=== PATIENT | male | born 1970 | race Caucasian/White ===

== ENCOUNTER 2016-08-30 07:59 | Emergency (ER) | payer BC ==
[2016-08-30] MEDS ORDERED: Ketorolac Tromethamine 60 MG/2 ML VIAL ONE (08:22)
== END 2016-08-30 08:44 | disposition home or self-care (01) ==
LOC: BURERS 07:59
DX: M54.5 Low back pain (principal)
CPT/HCPCS: 96372; J1885

== ENCOUNTER 2017-01-02 09:12 | Emergency (ER) | payer BC | END 2017-01-02 09:44 | disposition home or self-care (01) | LOC: BURERS 09:12 | DX: K04.7 Periapical abscess without sinus (principal); I10 Essential (primary) hypertension; F17.220 Nicotine dependence, chewing tobacco, uncomplicated | CPT/HCPCS: 99283 ==

== ENCOUNTER 2017-07-12 13:57 | Emergency (ER) | payer BC, OTHER, SELFPAY ==
[2017-07-12 15:01] LABS: Bilirubin Negative (Negative); Blood, Urine Negative (Negative); Clarity Clear (Clear); Glucose, Urine (Dipstick) Negative (Negative); Leukocyte Negative (Negative); Nitrite Negative (Negative); Protein, Urine (Dipstick) Negative (Neg-Trace); Specific Gravity, Urine 1.025 (1.002-1.036)
[2017-07-12 15:39] LABS: White Blood Cell (WBC) Count 9.6 thou/uL (4.8-10.8)
[2017-07-12 15:40] LABS: #Basophils 0.1 thou/uL (0.0-0.2); #Eosinphils 0.3 thou/uL (0.0-0.7); #Monocytes 0.6 thou/uL (0.11-0.59); #Neutrophils 6.2 thou/uL (1.40-6.50); %Basophils 1.3 % (0.0-1.0); %Eosinophils 3.2 % (0.0-10.0); %Lymphocytes 24.6 % (21.0-51.0); %Monocytes 5.9 % (0.0-10.0); %Neutrophils 65.1 % (42.0-75.0); Hemoglobin 14.8 g/dL (14.0-18.0); MDiff Complete? YES; Mean Corpuscular HGB CONC 34.6 g/dL (32.0-36.0); Mean Corpuscular Hemoglobin 29.6 pg (27.0-31.0); Mean Corpuscular Volume 85.7 fL (80.0-94.0); Platelet Count 264 thou/uL (130-400); RBC Distribution Width 12.1 % (11.5-14.5); Red Blood Cell (RBC) Count 4.99 mill/uL (4.70-6.10)
[2017-07-12 16:23] LABS: Anion Gap 15 mmol/L (10-20); BUN (Urea Nitrogen) 9 mg/dL (8.9-20.6); Calc. Creatinine Clearance 0 mL/min (70-130); Calcium 9.6 mg/dL (7.8-10.44); Carbon Dioxide 24 mmol/L (22-29); Chloride 107 mmol/L (98-107); Estimated GFR-MDRD Greater than 90; Glucose 110 mg/dL (70-105); Potassium 3.7 mmol/L (3.5-5.1); Sodium 142 mmol/L (136-145)
[2017-07-12] MEDS ORDERED: Ibuprofen 800 MG TAB ONE (16:43)
--- NOTE | 2017-07-12 17:23 | RAD ---
CHEST TWO VIEWS: 07/12/17 Comparison is made with the 08/07/08 study. The heart is normal in size. There is no mediastinal widening or shift. There is some linear streakin g in the left base which may be atelectasis. There are no large effusions. No pneumothorax was seen. No gross fracture was identified. The lungs are somewhat hyperexpanded. IMPRESSION: Left basilar streaking which is likely atelectasis. There might be a tiny left pleural effusion, but this is less certain. POS: HOME
--- NOTE | 2017-07-12 17:32 | CT ---
CT OF THE CHEST WITH CONTRAST 07/12/[address] of the chest was performed for evaluation of an abnormal chest x-ray after a fall. Axial sl ices were acquired, then lara and sagittal reconstructions were done. A nondisplaced fracture of the left 12th rib is noted. No other rib fractures were detected. There is a very small left pleural effusion, but no pneumothorax was seen. There is the suggestion of a littl e atelectasis in the lingular region on the left. The lungs are otherwise clear. The patient's spine appears intact. Regarding the mediastinum, there is no sign of mediastinal mass or hematoma. There is probably a trac e of pericardial fluid. There is a small fluid collection in the region of the aorticopulmonary windo w that is presumably in a pericardial recess. No coronary calcifications were appreciated. Scans into the upper abdomen showed no acute findings here. Most of the spleen was seen and it appear ed intact. IMPRESSION: Nondisplaced fracture of the left 12th rib with associated small left pleural effusion. POS: HOME
== END 2017-07-12 17:13 | disposition home or self-care (01) ==
LOC: BURERS 13:57
DX: S22.32XA Fracture of one rib, left side, initial encounter for closed fracture (principal); I10 Essential (primary) hypertension; J90 Pleural effusion, not elsewhere classified; F17.220 Nicotine dependence, chewing tobacco, uncomplicated; W18.30XA Fall on same level, unspecified, initial encounter
CPT/HCPCS: 71046; 71260; 80048; 81003; 85025

== ENCOUNTER 2018-04-22 12:41 | Emergency (ER) | payer OTHER, SELFPAY ==
[2018-04-22] MEDS ORDERED: AMOXicillin 250 MG CAP ONE (12:59)
== END 2018-04-22 13:07 | disposition home or self-care (01) ==
LOC: BURERS 12:41
DX: K02.9 Dental caries, unspecified (principal); F17.220 Nicotine dependence, chewing tobacco, uncomplicated
CPT/HCPCS: 99282

== ENCOUNTER 2021-04-15 20:36 | Emergency (ER) | payer SELFPAY ==
[2021-04-15] MEDS ORDERED: cefTRIAXone\\ROCEPHIN 2 GM VIAL ONE (21:23)
[2021-04-15] MEDS ORDERED: Sodium Chloride 0.9% 100 ML ONE (21:23)
[2021-04-15 21:35] LABS: Anion Gap 15 mmol/L (10-20); BUN (Urea Nitrogen) 13 mg/dL (8.9-20.6); Calc. Creatinine Clearance 0 mL/min (70-130); Calcium 9.7 mg/dL (7.8-10.44); Carbon Dioxide 21 mmol/L (22-29); Chloride 108 mmol/L (98-107); Glucose 143 mg/dL (70-105); Hemoglobin 14.6 g/dL (14.0-18.0); Mean Corpuscular HGB CONC 33.9 g/dL (32.0-36.0); Mean Corpuscular Hemoglobin 29.2 pg (27.0-31.0); Platelet Count 206 thou/uL (130-400); Potassium 4.1 mmol/L (3.5-5.1); Red Blood Cell (RBC) Count 4.99 mill/uL (4.70-6.10); Sodium 140 mmol/L (136-145); White Blood Cell (WBC) Count 9.2 thou/uL (4.8-10.8)
[2021-04-15 22:04] LABS: Band 7 % (5-11); Lymphocytes 21 % (21-51); MDiff Complete? YES; Monocytes 5 % (0-10); Neutrophil 66 % (42-75); RBC Morphology Normal
[2021-04-16 17:24] LABS: SARS-CoV-2 PCR by NAA Not Detected (NotDetected)
== END 2021-04-15 22:37 | disposition home or self-care (01) ==
LOC: BURERS 20:36
DX: L03.115 Cellulitis of right lower limb (principal); Z20.822 Contact with and (suspected) exposure to COVID-19; I10 Essential (primary) hypertension; F17.220 Nicotine dependence, chewing tobacco, uncomplicated
CPT/HCPCS: 80048; 83605; 85025; 87040; 87070; 87077; 87186; 87205; 96365; J0696; J3490; U0003; U0005

== ENCOUNTER 2021-04-24 11:20 | Emergency (ER) | payer SELFPAY | END 2021-04-24 11:44 | disposition home or self-care (01) | LOC: BURERS 11:20 | DX: Z48.00 Encounter for change or removal of nonsurgical wound dressing (principal); I10 Essential (primary) hypertension; F17.220 Nicotine dependence, chewing tobacco, uncomplicated; Z79.899 Other long term (current) drug therapy | CPT/HCPCS: 99283 ==

== ENCOUNTER 2021-12-06 16:15 | Emergency (ER) | payer SELFPAY ==
[2021-12-06 17:09] LABS: #Basophils 0.1 thou/uL (0.0-0.2); #Eosinphils 0.3 thou/uL (0.0-0.7); #Lymphocytes 2.6 thou/uL (1.20-3.40); #Monocytes 0.5 thou/uL (0.11-0.59); #Neutrophils 6.1 thou/uL (1.40-6.50); %Basophils 0.8 % (0.0-1.0); %Eosinophils 2.9 % (0.0-10.0); %Monocytes 5.3 % (0.0-10.0); Hemoglobin 14.7 g/dL (14.0-18.0); Mean Corpuscular HGB CONC 32.7 g/dL (32.0-36.0); Mean Corpuscular Hemoglobin 28.3 pg (27.0-31.0); Mean Corpuscular Volume 86.5 fL (78.0-98.0); Mean Platelet Volume 7.3 fL (7.4-10.4); Platelet Count 273 thou/uL (130-400); RBC Distribution Width 12.3 % (11.5-14.5); Red Blood Cell (RBC) Count 5.18 mill/uL (4.70-6.10); White Blood Cell (WBC) Count 9.5 thou/uL (4.8-10.8)
[2021-12-06 17:26] LABS: ALT (SGPT) 22 U/L (8-55); AST (SGOT) 13 U/L (5-34); Albumin 4.2 g/dL (3.5-5.0); Alkaline Phosphatase 87 U/L (40-110); Anion Gap 15 mmol/L (10-20); BUN (Urea Nitrogen) 14 mg/dL (8.9-20.6); Bilirubin, Total 0.2 mg/dL (0.2-1.2); Calc. Creatinine Clearance 0 mL/min (70-130); Calcium 9.3 mg/dL (7.8-10.44); Carbon Dioxide 24 mmol/L (22-29); Chloride 109 mmol/L (98-107); Estimated GFR 109; Glucose 102 mg/dL (70-105); Potassium 4.1 mmol/L (3.5-5.1); Protein, Total 7.2 g/dL (6.0-8.3); Sodium 144 mmol/L (136-145)
[2021-12-06] MEDS ORDERED: diphenhydrAMINE 50 MG/ML VIAL ONE (17:53)
[2021-12-06] MEDS ORDERED: Metoclopramide HCl 10 MG/2 ML VIAL ONE (17:53)
[2021-12-06] MEDS ORDERED: cloNIDine 0.1 MG TAB ONE (18:52)
[2021-12-06] MEDS ORDERED: Lisinopril 20 MG TAB ONE (18:52)
[2021-12-06] MEDS ORDERED: hydrALAZINE 25 MG TAB ONE (21:36)
== END 2021-12-06 23:15 | disposition home or self-care (01) ==
LOC: BURERS 16:15
DX: I10 Essential (primary) hypertension (principal); F17.210 Nicotine dependence, cigarettes, uncomplicated; F17.220 Nicotine dependence, chewing tobacco, uncomplicated
CPT/HCPCS: 36415; 70450; 80053; 84484; 85025; 93005; 96374; 96375; J1200; J2765

== ENCOUNTER 2022-10-15 13:26 | Emergency (ER) | payer SELFPAY ==
[2022-10-15] MEDS ORDERED: Bacitracin 1 PK ONE (13:42)
[2022-10-15] MEDS ORDERED: Lidocaine 1% PF 5 ML VIAL ONE (13:42)
[2022-10-15] MEDS ORDERED: Sulfameth/Trimethoprim DS 800-160mg TAB ONE (13:42)
== END 2022-10-15 14:17 | disposition home or self-care (01) ==
LOC: BURERS 13:26
DX: L03.012 Cellulitis of left finger (principal); I10 Essential (primary) hypertension; Z79.899 Other long term (current) drug therapy
CPT/HCPCS: 10060